=== PATIENT | female | born 1990 | race Two or more races ===

== ENCOUNTER 2020-08-06 18:20 | Emergency (ER) | payer BC ==
[~2020-08-06] VITALS: Ht 157.5 cm; Wt 96.2 kg
[2020-08-06 19:18] LABS: Urine Bacteria FEW /hpf (None Seen); Urine Blood Negative /uL (Negative); Urine Mucus FEW (None Seen); Urine Specific Gravity 1.014 (1.001-1.035); Urine WBC 17 /hpf (0 - 5)
[2020-08-06 21:24] VITALS: BP 112/69
== END 2020-08-06 21:58 | disposition home or self-care (01) ==
LOC: ER 18:20
DX: M54.16 Radiculopathy, lumbar region (principal); N39.0 Urinary tract infection, site not specified; M62.830 Muscle spasm of back
CPT/HCPCS: 72100; 81001

== ENCOUNTER 2022-12-15 13:02 | Emergency (ER) | payer OTHER ==
[~2022-12-15] VITALS: Ht 157.5 cm; Wt 95.1 kg
[~2022-12-15 13:02] MED LIST: ALBUAER3 IN; GUAI600T23 PO; IBUP800T27 PO
[2022-12-15] MEDS ORDERED: IBUPROFEN 600 MG TAB PO ONE (15:30)
[2022-12-15] MEDS ORDERED: TETANUS-DIPTH-ACEL PERTUSSIS 0.5ML SYR Tdap IM ONE (15:30)
[2022-12-15] MEDS ORDERED: cefTRIAXone SOD 1,000 MG VL IM ONE (15:30)
[2022-12-15 15:55] VITALS: BP 136/70
[2022-12-15] MEDS ORDERED: IBUP600T28 PO (15:55)
[2022-12-15] MEDS ORDERED: AMOX-277 PO (15:55)
== END 2022-12-15 16:17 | disposition home or self-care (01) ==
LOC: ER 13:02
DX: L03.011 Cellulitis of right finger (principal); Z79.1 Long term (current) use of non-steroidal anti-inflammatories (NSAID); Z79.899 Other long term (current) drug therapy
CPT/HCPCS: 90471; 90715; 96372; 99284; J0696